=== PATIENT | female | born 1965 | race Caucasian/White ===

== ENCOUNTER → 2018-04-30 | Day surgery (SDC) | payer BC ==
[~2018-04-30] MED LIST: ASPIRIN325 MG PO; CENTRUM COMPLE1 EACH PO; FENTANYL CITRATE/PF 100MCG/2 ML INJ ONE; FISH OIL PO; HYOSCYAMINE SULFATE 0.5 MG/ML INJ ONE; LISINOPRIL10 MG PO; MIDAZOLAM HCL 5MG/ML 2ML VIAL ONE; NAPROXEN; PRAVASTATIN SOD20 MG PO; PROPOFOL IV EMULSION 10 MG/ML 50 ML VIAL ONE; VITAMIN C1000 MG; VITAMIN E400 UNI1 PO
--- NOTE | 2018-04-30 14:33 | Operative Report ---
DATE OF PROCEDURE: April 30, 2018 REFERRING PHYSICIAN: Dr. Tati Desai. PROCEDURE PERFORMED: Colonoscopy with biopsies. INDICATIONS FOR COLONOSCOPY: Colorectal cancer screening. MEDICATION: Patient was done under MAC. Please see anesthesiologist's note. PROCEDURE: With patient in left lateral decubitus position, a flexible fiberoptic Olympus colonoscope was introduced into the rectum and advanced all the way to the cecum. It was then withdrawn slowly. Mucosa overlying the cecum, ascending colon, transverse colon, descending colon appeared to be within normal limits. Diverticular disease was noted to involve the sigmoid colon. There was some mild patchy inflammatory changes noted in the sigmoid and rectum. Random biopsies were obtained. The scope was then retroflexed into the distal rectum and small internal hemorrhoids were noted, none of which was actively bleeding. The scope was then straightened out. It was subsequently withdrawn. Patient tolerated the procedure well. IMPRESSION 1. Diverticulosis. 2. Proctosigmoiditis, low-grade. 3. Internal hemorrhoids, none actively bleeding. PLAN: Follow up histology. Start VSL#3 one p.o. daily. Job#: [id number] [facility] cc:DR. TATI DESAI
--- OUTSIDE RECORDS SUMMARY | 2018-05-03 14:18 | XMS REPORT | Clinical Summary ---
Author Author [facility] Organization [place] [facility] Address Unknown Phone Unavailable Care Team Providers Care Oyster Picker Name Role Phone Rosendo Larsen MD PCP Allergies No Known Allergies Current Medications Prescription Sig. Disp. Refills Start End Date Status Date lisinopril Take 10 mg by mouth Active (PRINIVIL,ZESTRIL) 10 mg daily. tablet pravastatin (PRAVACHOL) Take 20 mg by mouth Active 20 MG tablet nightly. docosahexanoic acid/epa Take by mouth. Active (FISH OIL ORAL) aspirin 325 MG tablet Take 325 mg by mouth Active daily. Active Problems Problem Noted Date TIA (transient ischemic attack) 03/26/2018 Encounters Date Type Specialty Care Team Description 03/26/2018 [facility] General Surgery Lew Matthew MD Transient cerebral - Encounter ischemia, unspecified 03/27/2018 type (Primary Dx) 03/26/2018 Procedure Pass General Surgery after 05/01/2017 Social History Tobacco Use Types Packs/Day Years Used Date Never Smoker Alcohol Use Drinks/Week oz/Week Comments No Sex Assigned at Date Recorded Not on file Last Filed Vital Signs Vital Sign Reading Time Taken Blood Pressure 111/58 03/27/2018 11:50 AM CDT Pulse 60 03/27/2018 11:50 AM CDT Temperature 36.5 C (97.7 F) 03/27/2018 11:50 AM CDT Respiratory Rate 18 03/27/2018 11:50 AM CDT Oxygen Saturation 96% 03/27/2018 11:50 AM CDT Inhaled Oxygen - - Concentration Weight - - Height - - Body Mass Index - - Plan of Treatment Health Maintenance Due Date Last Done Comments CERVICAL CANCER SCREENING 1988 BREAST CANCER SCREENING 2017 COLON CANCER SCREENING 2017 SHINGRIX VACCINE (#1) 2017 INFLUENZA VACCINE 02/16/2018 Procedures Procedure Name Priority Date/Time Associated Diagnosis Comments ECHOCARDIOGRAM 2D Routine 03/27/2018 Results for this COMPLETE W MMODE SPECTRAL 11:44 AM CDT procedure are in the COLOR DOPPLER ([id number]) results section. CT ANGIOGRAM NECK W WO STAT 03/26/2018 Results for this CONTRAST 10:59 PM CDT procedure are in the results section. CT ANGIOGRAM HEAD W WO STAT 03/26/2018 Results for this CONTRAST 10:59 PM CDT procedure are in the results section. ECG 12-LEAD Routine 03/26/2018 Results for this 8:26 PM CDT procedure are in the results section. MRI BRAIN W WO CONTRAST STAT 03/26/2018 Results for this 6:58 PM CDT procedure are in the results section. CT HEAD WO CONTRAST STAT 03/26/2018 Results for this 6:53 PM CDT procedure are in the results section. LACTIC ACID LEVEL Routine 03/26/2018 Results for this 4:48 PM CDT procedure are in the results section. ZZESTIMATED GFR Routine 03/26/2018 Results for this 4:06 PM CDT procedure are in the results section. THYROID STIMULATING Routine 03/26/2018 Results for this HORMONE 4:06 PM CDT procedure are in the results section. MAGNESIUM LEVEL Routine 03/26/2018 Results for this 4:06 PM CDT procedure are in the results section. LIPID PANEL Routine 03/26/2018 Results for this 4:06 PM CDT procedure are in the results section. BASIC METABOLIC PANEL Routine 03/26/2018 Results for this 4:06 PM CDT procedure are in the results section. HC COMPLETE BLD COUNT Routine 03/26/2018 Results for this W/AUTO DIFF 4:06 PM CDT procedure are in the results section. CREATINE KINASE, TOTAL STAT 03/26/2018 Results for this (CPK) 4:06 PM CDT procedure are in the results section. after 05/01/2017 Results * Echocardiogram complete w contrast and 3D if needed (03/27/2018 11:44 AM) Velocity Ratio (V1/V2) 1.02 m/s [facility] IVS,d 0.85 cm [facility] Ao root annulus 3.02 cm [facility] EF 56.87 % [facility] LA volume 50.0 cm3 [facility] LVPWD,d 0.85 cm [facility] AoV Mean PG 3.86 mmHg [facility] AV LVOT peak gradient 7.71 mmHg [facility] MV valve area p 1/2 3.90 cm2 [facility] method E/A ratio 1.85 [facility] E wave decelartion time 173.24 msec [facility] LVOT Diam,S 1.94 cm [facility] LVOT area 2.95 cm2 [facility] LVOT Vmax 1.39 m/s [facility] LVOT VTI 0.28 m [facility] AoV Peak PG 7.37 mmHg [facility] MV Peak E Juvencio 0.76 m/s [facility] MV stenosis pressure 1/2 56.36 ms [facility] time MV Peak A Juvencio 0.41 m/s [facility] AoV Area, Vmax 3.03 cm2 [facility] AoV Area, VTI 2.85 cm2 [facility] AoV Vmax 1.36 m/s [facility] LA Area d A4C 58 cm2 [facility] LV,d 4.44 cm [facility] LV,s 3.13 cm [facility] RVSP (TR) 27.13 mmHg [facility] TR Vpeak 2.35 mm/s [facility] MV E A ratio 1.83 mmHg [facility] RA pressure 5.00 mmHg [facility] TR pk grad 22 mmHg [facility] MR peak grad 29.21 mmHg [facility] RVSP 27.13 mmHg [facility] LV SYS VOL 38.68 ml [facility] LV AKHTAR VOL 89.68 ml [facility] LA diam s 4.20 cm [facility] LA Vol MOD A4C 57.86 ml [facility] LV SV Teich 2D 51.00 ml [facility] LVOT SI 36.94 ml/m2 [facility] AoV Cusp sep 1.70 [facility] Aortic Root 3.00 cm [facility] AoV Vmn 0.94 [facility] IVS s 2D 1.20 [facility] LA Ao Ratio Mmode 1.39 [facility] AZ End Akhtar Grad 1.83 [facility] AZ End Diat Juvencio 0.68 [facility] D E excurs 1.30 [facility] E f slope 0.09 [facility] E prime lat 0.14 [facility] E peter sept 0.13 [facility] PV acc T slope 5.00 [facility] PV AT 124.57 msec [facility] AoV VTI 0.29 m [facility] MR Vmax 2.70 m/s [facility] LVOT Vmn 0.88 [facility] Pt Size 157.48 [facility] Pt Wt 136.08 [facility] LVOT mean grad 3.59 mmHg [facility] LVPW s PLAX 1.06 cm [facility] MV Decel slope 4.38 m/s2 [facility] Narrative Performed At [facility] Left Ventricular ejection fraction is 55 - 60%. No pericardial effusion Performing Organization Address City/State/Zipcode Phone Number [facility] [address] [place] [address] * CTA Neck W Wo Contrast (03/26/2018 10:59 PM) Narrative Performed At EXAMINATION:CT ANGIOGRAM NECK W WO CONTRAST [facility] CLINICAL HISTORY:Strokefollow up COMPARISON:None. TECHNIQUE: Neck CTA with multi-planar MIP and volumetric rendering (3D) after bolus intravenous iodinated contrast administration was performed. All CT images were acquired using low-dose technique with automated exposure control. FINDINGS: Normal branching anatomy of the aortic arch. No atherosclerosis or narrowing of the aortic arch or branch vessels. There is normal contrast enhancement with no significant stenosis or occlusion along bilateral common, internal, and external carotid arteries. There is no significant stenosis according to the NASCET criteria (0%). There is normal contrast enhancement with no significant stenosis or occlusion along bilateral vertebral arteries. The vertebral arteries are codominant. Severe bilateral neural foraminal stenosis C5-C6 secondary to uncovertebral and facet arthropathy additional mild/moderate degenerative changes are present. IMPRESSION: No significant cervical carotid or vertebral artery stenosis. [facility]-[id number] Procedure Note Interface, Radiology Results Incoming - 03/26/2018 11:11 PM CDT EXAMINATION: CT ANGIOGRAM NECK W WO CONTRAST CLINICAL HISTORY: Stroke follow up COMPARISON: None. TECHNIQUE: Neck CTA with multi-planar MIP and volumetric rendering (3D) after bolus intravenous iodinated contrast administration was performed. All CT images were acquired using low-dose technique with automated exposure control. FINDINGS: Normal branching anatomy of the aortic arch. No atherosclerosis or narrowing of the aortic arch or branch vessels. There is normal contrast enhancement with no significant stenosis or occlusion along bilateral common, internal, and external carotid arteries. There is no significant stenosis according to the NASCET criteria (0%). There is normal contrast enhancement with no significant stenosis or occlusion along bilateral vertebral arteries. The vertebral arteries are codominant. Severe bilateral neural foraminal stenosis C5-C6 secondary to uncovertebral and facet arthropathy additional mild/moderate degenerative changes are present. IMPRESSION: No significant cervical carotid or vertebral artery stenosis. [facility]-[id number] Performing Organization Address [facility] Phone Number [facility] [address] [place] [address] * CTA Head W Wo Contrast (03/26/2018 10:59 PM) Narrative Performed At EXAMINATION: [facility]: Strokefollow up COMPARISON:MRI brain same day TECHNIQUE:Imaging of the intracranial circulation was obtained from the skull base to the vertex during the arterial phase of enhancement. Postprocessing was performed with MIP multiplanar and 3D reconstructed images.CT imaging was performed with iterative reconstruction technique and/or automated exposure control to reduce radiation dose. FINDINGS: No focal stenosis or aneurysm of the anterior or posterior intracranial circulation. Limited examination of the brain demonstrates no evidence of acute intracranial abnormality. IMPRESSION: 1. No focal stenosis or aneurysm of the intracranial circulation. [facility]-[id number] Procedure Note Interface, Radiology Results Incoming - 03/26/2018 11:09 PM CDT EXAMINATION: CT ANGIOGRAM HEAD W WO CONTRAST CLINICAL HISTORY: Stroke follow up COMPARISON: MRI brain same day TECHNIQUE: Imaging of the intracranial circulation was obtained from the skull base to the vertex during the arterial phase of enhancement. Postprocessing was performed with MIP multiplanar and 3D reconstructed images. CT imaging was performed with iterative reconstruction technique and/or automated exposure control to reduce radiation dose. FINDINGS: No focal stenosis or aneurysm of the anterior or posterior intracranial circulation. Limited examination of the brain demonstrates no evidence of acute intracranial abnormality. IMPRESSION: 1. No focal stenosis or aneurysm of the intracranial circulation. [facility]-[id number] Performing Organization Address [facility] Phone Number [facility] [address] [place] [address] * ECG 12 lead (03/26/2018 8:26 PM) Ventricular rate 59 [facility] Atrial rate 59 [facility] AZ interval 146 [facility] QRSD interval 80 [facility] QT interval 406 [facility] QTC interval 401 [facility] P axis 1 54 [facility] QRS axis 1 30 [facility] T wave axis 31 [facility] EKG impression Sinus bradycardia-Otherwise [facility] MUSE normal ECG-No previous ECGs available- Performing Organization Address [facility] Phone Number [facility] [address] [place] [address] * MRI Brain W Wo Contrast (03/26/2018 6:58 PM) Narrative Performed At EXAMINATION: MRI BRAIN W WO CONTRAST [facility] CLINICAL HISTORY: TIAinitial exam COMPARISON:None TECHNIQUE: Multiplanar and multisequence MRI imaging of the brain was obtained with and without contrast. FINDINGS: No evidence of acute intracranial hemorrhage, mass, mass effect, acute infarct or midline shift. Ventricles and sulci are normal in appearance for patient's age. No abnormal intracranial enhancement. No abnormal susceptibility. Basal cisterns are clear. Major intracranial flow voids are maintained. Orbits are normal in appearance. Visualized paranasal sinuses and mastoid air cells are clear. IMPRESSION: 1. No acute intracranial abnormality. [facility]-[id number] Procedure Note Interface, Radiology Results Incoming - 03/26/2018 7:15 PM CDT EXAMINATION: MRI BRAIN W WO CONTRAST CLINICAL HISTORY: TIA initial exam COMPARISON: None TECHNIQUE: Multiplanar and multisequence MRI imaging of the brain was obtained with and without contrast. FINDINGS: No evidence of acute intracranial hemorrhage, mass, mass effect, acute infarct or midline shift. Ventricles and sulci are normal in appearance for patient's age. No abnormal intracranial enhancement. No abnormal susceptibility. Basal cisterns are clear. Major intracranial flow voids are maintained. Orbits are normal in appearance. Visualized paranasal sinuses and mastoid air cells are clear. IMPRESSION: 1. No acute intracranial abnormality. [facility]-[id number] Performing Organization Address [facility] Phone Number [facility] [address] [place] [address] * CT Head Wo Contrast (03/26/2018 6:53 PM) Narrative Performed At EXAMINATION:CT HEAD WO CONTRAST [facility] CLINICAL HISTORY:TIAinitial exam COMPARISON:None. TECHNIQUE: Noncontrast head CT performed using radiation dose reduction techniques.Technical factors are evaluated and adjusted to ensure appropriate moderation of exposure.Automated dose management technology is applied to adjust radiation exposure while achieving a diagnostic quality image. FINDINGS: No evidence of acute intracranial hemorrhage, mass, mass effect, midline shift, or acute infarct. Ventricles and sulci are normal in appearance for patient's age.Basal cisterns are clear. Calvarium is intact. Orbits are normal in appearance. No significant paranasal sinus mucosal thickening. Mastoid air cells are clear. IMPRESSION: 1. No CT evidence of acute intracranial abnormality. [facility]-[id number] Procedure Note Hm Interface, Radiology Results Incoming - 03/26/2018 6:58 PM CDT EXAMINATION: CT HEAD WO CONTRAST CLINICAL HISTORY: TIA initial exam COMPARISON: None. TECHNIQUE: Noncontrast head CT performed using radiation dose reduction techniques. Technical factors are evaluated and adjusted to ensure appropriate moderation of exposure. Automated dose management technology is applied to adjust radiation exposure while achieving a diagnostic quality image. FINDINGS: No evidence of acute intracranial hemorrhage, mass, mass effect, midline shift, or acute infarct. Ventricles and sulci are normal in appearance for patient's age. Basal cisterns are clear. Calvarium is intact. Orbits are normal in appearance. No significant paranasal sinus mucosal thickening. Mastoid air cells are clear. IMPRESSION: 1. No CT evidence of acute intracranial abnormality. [facility]-[id number] Performing Organization Address City/[facility]/Zipcode Phone Number [facility] [address] [place] [address] * Lactic acid level (03/26/2018 4:48 PM) Lactic acid 1.0 0.5 - 2.2 mmol/L [facility] DEPARTMENT OF PATHOLOGY AND GENOMIC MEDICINE Specimen Plasma specimen Performing Organization Address [facility] [place] [address] PATHOLOGY AND GENOMIC MEDICINE * Estimated GFR (03/26/2018 4:06 PM) GFR Non Af Amer 88 mL/min/1.73 m2 [facility] DEPARTMENT OF PATHOLOGY AND GENOMIC MEDICINE GFR Af Amer >90 mL/min/1.73 m2 [facility] DEPARTMENT OF Comment: PATHOLOGY AND Chronic kidney disease: <60 GENOMIC MEDICINE mL/min/1.73m2 Kidney failure: <15 mL/min/1.73m2 The estimated GFR is calculated from the IDMS-traceable Modification of Diet in Renal Disease Equation. The accuracy of the calculation is poor when the creatinine is normal. Calculated values >90 mL/min/1.73m2 are not reported. This equation has not been validated in children (<18 years), women, the elderly (>70 years), or ethnic groups other than Caucasians and Americans. Specimen Plasma specimen Performing Organization Address City/[facility]/Zipcode Phone Number [address] [place] [address] PATHOLOGY [facility] * CBC with platelet and differential (03/26/2018 4:06 PM) WBC 7.08 4.50 - 11.00 k/uL [facility] DEPARTMENT OF PATHOLOGY AND GENOMIC MEDICINE RBC 4.19 (L) 4.20 - 5.50 m/uL [facility] OF PATHOLOGY AND GENOMIC MEDICINE HGB 13.2 12.0 - 16.0 g/dL [facility] DEPARTMENT OF PATHOLOGY AND GENOMIC MEDICINE HCT 39.5 37.0 - 47.0 % [facility] DEPARTMENT OF PATHOLOGY AND GENOMIC MEDICINE MCV 94.3 82.0 - 100.0 fL [facility] DEPARTMENT OF PATHOLOGY AND GENOMIC MEDICINE MCH 31.5 27.0 - 34.0 pg [facility] DEPARTMENT OF PATHOLOGY AND GENOMIC MEDICINE MCHC 33.4 31.0 - 37.0 g/dL [facility] DEPARTMENT OF PATHOLOGY AND GENOMIC MEDICINE RDW - SD 42.8 37.0 - 55.0 fL [facility] DEPARTMENT OF PATHOLOGY AND GENOMIC MEDICINE MPV 10.0 8.8 - 13.2 fL [facility] DEPARTMENT OF PATHOLOGY AND GENOMIC MEDICINE Platelet count 242 150 - 400 k/uL [facility] DEPARTMENT OF PATHOLOGY AND GENOMIC MEDICINE Nucleated RBC 0.00 /100 WBC [facility] DEPARTMENT OF PATHOLOGY AND GENOMIC MEDICINE Neutrophils 74.3 (H) 39.0 - 69.0 % [facility] DEPARTMENT OF PATHOLOGY AND GENOMIC MEDICINE Lymphocytes 18.9 (L) 25.0 - 45.0 % [facility] DEPARTMENT OF PATHOLOGY AND GENOMIC MEDICINE Monocytes 5.5 0.0 - 10.0 % [facility] DEPARTMENT OF PATHOLOGY AND GENOMIC MEDICINE Eosinophils 0.6 0.0 - 5.0 % [facility] DEPARTMENT OF PATHOLOGY AND GENOMIC MEDICINE Basophils 0.3 0.0 - 1.0 % [facility] DEPARTMENT OF PATHOLOGY AND GENOMIC MEDICINE Specimen Blood Performing Organization Address City/[facility]/Zipcode Phone Number [address] [place] [address] PATHOLOGY [facility] * Thyroid stimulating hormone (03/26/2018 4:06 PM) TSH 1.31 0.27 - 4.20 uIU/mL [facility] DEPARTMENT OF PATHOLOGY AND GENOMIC MEDICINE Specimen Plasma specimen Performing Organization Address [facility] Phone Number [address] [place] [address] PATHOLOGY AND [facility] * Magnesium level (03/26/2018 4:06 PM) Magnesium 1.9 1.6 - 2.6 mg/dL [facility] DEPARTMENT OF PATHOLOGY AND [facility] MEDICINE Specimen Plasma specimen Performing Organization Address [facility] Phone Number [address] [place] [address] PATHOLOGY AND [facility] * Creatine kinase, total (CPK) (03/26/2018 4:06 PM) Creatine kinase 78 26 - 192 U/L [facility] DEPARTMENT OF PATHOLOGY AND GENOMIC MEDICINE Specimen Plasma specimen Performing Organization Address [facility] Phone Number [address] [place] [address] PATHOLOGY AND [facility] MED[facility] * Lipid panel (03/26/2018 4:06 PM) Cholesterol 151 <200 mg/dL [facility] DEPARTMENT OF PATHOLOGY AND GENOMIC MEDICINE Triglycerides 40 <150 mg/dL [facility] DEPARTMENT OF PATHOLOGY AND GENOMIC MEDICINE HDL cholesterol 48 >40 mg/dL [facility] DEPARTMENT OF PATHOLOGY AND GENOMIC MEDICINE LDL cholesterol 91Comment: Result obtained by <100 mg/dL [facility] DEPARTMENT OF direct LDL measurement PATHOLOGY AND GENOMIC MEDICINE Lipid panel SeeBelow [facility] DEPARTMENT OF interpretation Comment: PATHOLOGY AND Total Cholesterol GENOMIC MEDICINE (mg/dL) <200 Desirable 200-239Borderline -high >=240High Triglycerides (mg/dL) <150 Normal 150-199Borderline -high 200-499High >=500Very high HDL Cholesterol (mg/dL) <40Low (male) <40Low (female) LDL Cholesterol (mg/dL) <100 Optimal 100-129Near or above optimal 130-159Borderline -high 160-189High >=190Very high Risk Catergories that modify LDL goals. Risk Catergories LDL goal (mg/dL) CHD and CHD risk equivalent<100 (10-year risk >20%) Multiple (2+) risk factors <130 (10-year risk=<20%) 0-1 risk factors <160 (<10-year risk) Defining levels of lipids in metabolic syndrome Triglycerides >=150 mg/dL HDL Cholesterol Men <40 mg/dL Women <40 mg/dL Non-HDL cholesterol is a second target for therapy in persons with high triglycerides (>=200 mg/dL) Specimen Plasma specimen Performing Organization Address [facility] Phone Number [address] [place] [address] PATHOLOGY AND GENOMIC [facility] * Basic metabolic panel (03/26/2018 4:06 PM) Sodium 139 135 - 148 mEq/L [facility] DEPARTMENT OF PATHOLOGY AND GENOMIC MEDICINE Potassium 4.5 3.5 - 5.0 mEq/L [facility] DEPARTMENT OF PATHOLOGY AND GENOMIC MEDICINE Chloride 101 98 - 112 mEq/L [facility] DEPARTMENT OF PATHOLOGY AND GENOMIC MEDICINE CO2 28 24 - 31 mEq/L [facility] DEPARTMENT OF PATHOLOGY AND GENOMIC MEDICINE Anion gap 10@ANIO 7 - 15 mEq/L [facility] DEPARTMENT OF PATHOLOGY AND GENOMIC MEDICINE BUN 15 6 - 20 mg/dL [facility] DEPARTMENT OF PATHOLOGY AND GENOMIC MEDICINE Creatinine 0.7 0.5 - 0.9 mg/dL [facility] DEPARTMENT OF PATHOLOGY AND GENOMIC MEDICINE Glucose 100 (H) 65 - 99 mg/dL [facility] DEPARTMENT OF PATHOLOGY AND GENOMIC MEDICINE Calcium 9.4 8.3 - 10.2 mg/dL [facility] DEPARTMENT OF PATHOLOGY AND GENOMIC MEDICINE Specimen Plasma specimen Performing Organization Address [facility] Phone Number [address] [place] [address] PATHOLOGY AND GENOMIC MEDICINE after 05/01/2017 Insurance Payer Benefit Subscriber ID Type Phone Address Plan / Group BCBS BCBS xxxxxxxxxxxx PPO CHOICE PPO/[place] [address]
== END | disposition home or self-care (01) ==
LOC: OR 09:57
PROVIDERS: ATTEND Internal Medicine Gastroenterology
DX: Z12.11 Encounter for screening for malignant neoplasm of colon (principal); K63.89 Other specified diseases of intestine; K57.30 Diverticulosis of large intestine without perforation or abscess without bleeding; K64.8 Other hemorrhoids; I10 Essential (primary) hypertension; Z01.810 Encounter for preprocedural cardiovascular examination; Z79.82 Long term (current) use of aspirin; Z86.73 Personal history of transient ischemic attack (TIA), and cerebral infarction without residual deficits
CPT/HCPCS: 45380; 81025; 93005; J1980; J2250